=== PATIENT | female | born 1960 | race Caucasian/White ===

== ENCOUNTER → 2017-01-01 | Outpatient (CLI) | payer OTHER | LOC: EMI 08:12 | DX: G35 Multiple sclerosis (principal); R60.9 Edema, unspecified; M51.36 Other intervertebral disc degeneration, lumbar region; M47.892 Other spondylosis, cervical region; M48.02 Spinal stenosis, cervical region; Z88.8 Allergy status to other drugs, medicaments and biological substances; Z88.2 Allergy status to sulfonamides; Z88.1 Allergy status to other antibiotic agents | CPT/HCPCS: 71270; 72156; 72158; A9577; J7050 ==

== ENCOUNTER → 2021-05-29 | Outpatient (CLI) | payer OTHER, SELFPAY ==
[~2021-05-29] MED LIST: AUBAGIO7 MG PO; COLACE 100MG C100 MG PO; CYMBALTA60 MG PO; ELAVIL 50 MG TA50 MG PO; ESTRADIOL0.5 MG PO; FEOSOL325 MG PO; FISH OIL + D31 EACH PO; HYDROCODON-ACE1 EAC6 PO; KLONOPIN TAB 00.5 MG PO; LOPID TAB 600600 MG PO; LOPRESSOR 25 MG25 MG PO; NEURONTIN 300300 MG PO; OMEPRAZOLE20 M1 PO; OXYBUTYNIN CHLO10 MG PO; OXYBUTYNIN CHLO15 MG PO; PERCOCET 5/325 T1 EA PO; PRAVACHOL80 MG PO; RANITIDINE HCL150 MG PO; REQUIP1 MG PO; VENLAFAXINE HCL50 MG PO; VITAMIN B-12500 MCG PO; VITAMIN C500 M1 PO; VITAMIN D31000 UNI1 PO; ZANAFLEX4 MG PO
== END ==
LOC: CT 05-25 10:30
DX: K43.9 Ventral hernia without obstruction or gangrene (principal); K42.9 Umbilical hernia without obstruction or gangrene; N20.0 Calculus of kidney
CPT/HCPCS: 36415; 82565; Q9967

== ENCOUNTER → 2021-06-06 | Outpatient (CLI) | payer OTHER, SELFPAY | LOC: LAB 08:22 | DX: R61 Generalized hyperhidrosis (principal); R59.0 Localized enlarged lymph nodes; F17.210 Nicotine dependence, cigarettes, uncomplicated | CPT/HCPCS: 36415; 82024; 82533 ==

== ENCOUNTER → 2021-06-19 | Outpatient (CLI) | payer OTHER | LOC: CT 11:00 | DX: R59.0 Localized enlarged lymph nodes (principal); J32.9 Chronic sinusitis, unspecified | CPT/HCPCS: 70491; Q9967 ==

== ENCOUNTER → 2021-07-31 | Outpatient (CLI) | payer OTHER | LOC: MAMO 07-07 09:00 | DX: Z12.31 Encounter for screening mammogram for malignant neoplasm of breast (principal) | CPT/HCPCS: 77067 ==

== ENCOUNTER → 2021-07-31 | Outpatient (CLI) | payer OTHER | LOC: KOH-I 12:37 | DX: F17.210 Nicotine dependence, cigarettes, uncomplicated (principal) | CPT/HCPCS: 71271 ==

== ENCOUNTER → 2022-04-10 | Outpatient (CLI) | payer OTHER | LOC: KOH-I 11:30 | DX: H53.8 Other visual disturbances (principal); S09.90XA Unspecified injury of head, initial encounter; R51.9 Headache, unspecified | CPT/HCPCS: 70450 ==

== ENCOUNTER → 2022-05-25 | Outpatient (CLI) | payer OTHER | LOC: KOH-I 10:18 | DX: N20.0 Calculus of kidney (principal); R39.89 Other symptoms and signs involving the genitourinary system; K42.9 Umbilical hernia without obstruction or gangrene; K76.0 Fatty (change of) liver, not elsewhere classified | CPT/HCPCS: 74176 ==

== ENCOUNTER → 2022-06-12 | Outpatient (CLI) | payer OTHER ==
[2022-06-12 08:07] LABS: HEMOGLOBIN 13.8 gm/dl (12.3-15.3); RED BLOOD COUNT 4.41 M/UL (4.00-5.10); WHITE BLOOD COUNT 5.6 K/UL (4.5-11.0)
[2022-06-12 09:03] LABS: BUN/CREATININE RATIO 24 (0-10)
== END ==
LOC: LAB 07:41
PROVIDERS: Family Medicine
DX: N20.0 Calculus of kidney (principal); R30.0 Dysuria; E55.9 Vitamin D deficiency, unspecified; E03.9 Hypothyroidism, unspecified; E78.00 Pure hypercholesterolemia, unspecified; I10 Essential (primary) hypertension
CPT/HCPCS: 36415; 80053; 80061; 83735; 84439; 84443; 85027; 87086